=== PATIENT | female | born 1950 | race Caucasian/White ===

== ENCOUNTER 2016-09-20 11:17 | Observation (INO) ==
--- NOTE | 2016-09-20 11:28 | Emergency Department Note ---
Disposition Clinical Impression: Chest pain, Abnormal EKG, Obesity, Hypertensive urgency, Headache, History of hypertension Disposition: Admitted As Inpatient Referrals: NO,PCP [Non-Partnered Physician] - Forms: ED Satisfaction Letter General Adult HPI - General Chief complaint: ED Chest Pain Stated complaint: CP/High BP Time Seen by Provider: 09/20/16 11:28 Source: patient Limitations: no limitations - History of Present Illness HPI Narrative: 56-year-old female reports to the emergency department complaining of chest pain which feels dull and pressure-like in the lower sternal area. There is no radiating pain. The patient reports she had bilateral knee replacements remotely. She has been very active and describes increasing dyspnea on exertion. There is no history of yeyo abdominal pain no vomiting. She reports chronic diarrhea status post cholecystectomy. There is no history of fever or trauma or rash or cough. No leg swelling or pain or coughing up blood. She also describes a significantly elevated blood pressure. She did she had a significant headache yesterday. There is no history of head trauma neck stiffness fever or rash. No convulsions or confusion. No trouble walking talking hearing seeing or speaking. The patient has no personal history of CAD DVT PE or cancer. 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 She has no personal history of aneurysm. There is been no confusion or convulsion. No numbness or weakness in the arms or legs. He is currently not anticoagulated. She takes aspirin intermittently. Patient reports he takes a diuretic for hypertension. She has no personal history of diabetes mellitus. She is a nonsmoker. Pain Scale: 2 - Related Data Home Medications Medication Instructions Recorded Confirmed Aleve 09/20/16 Aspirin 09/20/16 Maxide. 09/20/16 Sertraline 09/20/16 Allergies Allergy/AdvReac Type Severity Reaction Status Date / Time codeine Allergy Rash Verified 09/20/16 11:27 acetaminophen [From Percocet] AdvReac Vomiting Verified 09/20/16 11:27 Oxycodone [From Percocet] AdvReac Vomiting Verified 09/20/16 11:27 All systems ED: reviewed and negative except as stated. Past Medical History - Past Medical History Medical history: Reports: hypertension, other Surgical history: Reports: non-contributory Psychiatric history: Reports: no psych history - Social History Smoking Status: Never smoker Smokeless Tobacco Status: No Alcohol use: Reports: none Drug use: Reports: none Physical Exam - General Limitations: no limitations General appearance: alert, in no apparent distress - Head Head exam: atraumatic, normocephalic, normal inspection - Eye Eye exam: Present: normal appearance, PERRL, EOMI. Absent: scleral icterus, conjunctival injection, miosis, mydriasis - ENT ENT exam: normal exam, normal oropharynx, mucous membranes moist, TM's normal bilaterally, normal external ear exam - Neck Neck exam: Present: normal inspection, full ROM, trachea midline. Absent: tenderness - Chest Chest inspection: Present: symmetric chest wall rise. Absent: tenderness - Respiratory Respiratory exam: Present: normal lung sounds bilaterally. Absent: respiratory distress, wheezes, stridor, accessory muscle use, prolonged expiratory phase - Cardiovascular Cardiovascular exam: Present: regular rate, normal rhythm, normal heart sounds - Abdominal Exam Abdominal exam: Present: soft, Non-Tender, normal bowel sounds. Absent: tenderness, distention, guarding, rebound, rigidity - Extremities Exam Extremities exam: Present: normal inspection, full ROM, normal capillary refill. Absent: tenderness, pedal edema, joint swelling, calf tenderness - Expanded Lower Extremity Exam Lower leg exam: Absent: Homans' sign Neurovascular/Tendon exam: Present: normal capillary refill. Absent: motor deficit, sensory deficit, tendon deficit, extremity cold to touch, pallor - Back Exam Back exam: Present: normal inspection, full ROM. Absent: tenderness, CVA tenderness (R), CVA tenderness (L), vertebral tenderness - Neurological Exam Neurological exam: Present: alert, oriented X3, CN II-XII intact. Absent: motor sensory deficit, reflexes normal - Psychiatric Psychiatric exam: Present: normal affect, normal mood - Skin Skin exam: Present: warm, dry, intact, normal color. Absent: rash, cyanosis, diaphoresis, erythema, pallor, mottled Course Vital Signs Temperature 97.8 F 09/20/16 11:21 Pulse Rate 63 09/20/16 11:21 Respiratory Rate 16 09/20/16 11:21 Blood Pressure 198/107 09/20/16 11:21 O2 Sat by Pulse Oximetry 98 09/20/16 11:21 Temperature 97.8 F 09/20/16 11:21 Pulse Rate 55 09/20/16 14:06 Respiratory Rate 16 09/20/16 14:06 Blood Pressure 153/87 09/20/16 14:06 O2 Sat by Pulse Oximetry 97 09/20/16 14:06 Oxygen Delivery Oxygen Delivery Room Air Medical Decision Making - MDM Narrative Medical decision making narrative: The patient is experiencing chest pain and dyspnea on exertion. She is over 50 , has a history of hypertension appears to have uncontrolled hypertension, her EKG is significantly abnormal with T-wave inversions across the precordium are new compared to previous EKG. She has not had any recent stress test or heart catheterization. Based on her risk for ACS including age, hypertension, obesity , and notably abnormal EKG with symptomatic dyspnea on exertion and chest pain I thought it would be appropriate to admit the patient in the hospital. She essentially has a hypertensive urgency as well. She declined pain medication the ED initially. Nitroglycerin was given. She was monitored in the ER. CTA of the chest reveals acute disease. CT head negative. Aspirin was ordered. The patient's currently stable. I reviewed the case with her and her . 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 I reviewed the case with the hospitalist on-call who is accepted the patient to their care. - Lab Data Lab results reviewed: Yes I reviewed the patient's lab results. Result diagrams: 09/20/16 11:40 09/20/16 11:40 Lab Results 09/20/16 09/20/16 09/20/16 Range/Units 11:40 11:40 11:40 WBC (4.3-11.1) K/mcL RBC (3.82-4.97) M/mcL Hgb (11.5-15.4) g/dL Hct (35.3-44.9) % MCV (83.0-100.0) fL MCH (28.0-33.3) pg MCHC (31.6-35.5) g/dL RDW (11.5-14.5) % Plt Count (140-400) K/mcL MPV (9.4-12.4) fL Immature Gran % (0-4) % Seg Neutrophils % % Lymphocytes % % Monocytes % % Eosinophils % % Basophils % % Neutrophils # (1.6-8.9) K/mcL Lymphocytes # (0.6-4.6) K/mcL Monocytes # (0.0-1.3) K/mcL Eosinophils # (0.0-0.6) K/mcL Basophils # (0.0-0.2) K/mcL PT 10.6 (9.4-12.1) Seconds INR 1.0 APTT 31.5 (26.0-36.0) Seconds Sodium 141 (136-145) mEq/L Potassium 4.2 (3.5-4.5) mEq/L Chloride 105 (98-109) mEq/L Carbon Dioxide 27 (19-29) mEq/L BUN 15 (7-20) mg/dL Creatinine 0.84 (0.57-1.11) mg/dL Est GFR ( Amer) > 60 (> 60) Est GFR (Non-Af Amer) > 60 (> 60) BUN/Creatinine Ratio 18 (6-26) Glucose 106 H (70-99) mg/dL Calculated Osmolality 293 (280-300) Lactic Acid (0.5-2.2) mmol/L Calcium 9.7 (8.6-10.8) mg/dL Total Bilirubin 0.3 (0.2-1.2) mg/dL Direct Bilirubin 0.2 (0.0-0.5) mg/dL Indirect Bilirubin 0.1 (0.0-1.2) mg/dL AST 21 (5-34) Units/L ALT 20 (0-55) Units/L Alkaline Phosphatase 169 H (38-126) Units/L Troponin I (0-0.03) ng/mL C-Reactive Protein 5 H (Less than 5) mg/L Serum Total Protein 7.4 (6.0-8.3) g/dL Albumin 3.8 (3.5-5.0) g/dL Globulin 3.6 H (2.4-3.5) g/dL Albumin/Globulin Ratio 1.1 (1.1-2.2) Lipase 54 (8-78) Units/L 09/20/16 09/20/16 09/20/16 Range/Units 11:40 11:40 11:40 WBC 4.9 (4.3-11.1) K/mcL RBC 4.97 (3.82-4.97) M/mcL Hgb 12.7 (11.5-15.4) g/dL Hct 40.2 (35.3-44.9) % MCV 80.9 L (83.0-100.0) fL MCH 25.6 L (28.0-33.3) pg MCHC 31.6 (31.6-35.5) g/dL RDW 14.2 (11.5-14.5) % Plt Count 228 (140-400) K/mcL MPV 10.8 (9.4-12.4) fL Immature Gran % 0.2 (0-4) % Seg Neutrophils % 62.8 % Lymphocytes % 27.1 % Monocytes % 7.1 % Eosinophils % 2.2 % Basophils % 0.6 % Neutrophils # 3.1 (1.6-8.9) K/mcL Lymphocytes # 1.3 (0.6-4.6) K/mcL Monocytes # 0.4 (0.0-1.3) K/mcL Eosinophils # 0.1 (0.0-0.6) K/mcL Basophils # 0.0 (0.0-0.2) K/mcL PT (9.4-12.1) Seconds INR APTT (26.0-36.0) Seconds Sodium (136-145) mEq/L Potassium (3.5-4.5) mEq/L Chloride (98-109) mEq/L Carbon Dioxide (19-29) mEq/L BUN (7-20) mg/dL Creatinine (0.57-1.11) mg/dL Est GFR ( Amer) (> 60) Est GFR (Non-Af Amer) (> 60) BUN/Creatinine Ratio (6-26) Glucose (70-99) mg/dL Calculated Osmolality (280-300) Lactic Acid 1.0 (0.5-2.2) mmol/L Calcium (8.6-10.8) mg/dL Total Bilirubin (0.2-1.2) mg/dL Direct Bilirubin (0.0-0.5) mg/dL Indirect Bilirubin (0.0-1.2) mg/dL AST (5-34) Units/L ALT (0-55) Units/L Alkaline Phosphatase (38-126) Units/L Troponin I 0.01 (0-0.03) ng/mL C-Reactive Protein (Less than 5) mg/L Serum Total Protein (6.0-8.3) g/dL Albumin (3.5-5.0) g/dL Globulin (2.4-3.5) g/dL Albumin/Globulin Ratio (1.1-2.2) Lipase (8-78) Units/L - Radiology Data Radiology results reviewed: Yes I reviewed the patient's radiology results.
[2016-09-20] MEDS ORDERED: Nitroglycerin 1 INCH/GM PACKET TP ONE (11:38)
[2016-09-20] MEDS ORDERED: Ondansetron 4 MG/2 ML VIAL IVP ONE (11:41)
[2016-09-20] MEDS ORDERED: *HR* Morphine 2 MG/ML SYRINGE IVP ONE (11:41)
[2016-09-20 11:53] LABS: Basophils % 0.6 %; Eosinophils # 0.1 K/mcL (0.0-0.6); Eosinophils % 2.2 %; Hematocrit 40.2 % (35.3-44.9); Hemoglobin 12.7 g/dL (11.5-15.4); Immature Granulocytes % 0.2 % (0-4); Lymphocytes # 1.3 K/mcL (0.6-4.6); Lymphocytes % 27.1 %; Mean Corpuscular HGB Conc 31.6 g/dL (31.6-35.5); Mean Corpuscular Hemoglobin 25.6 pg (28.0-33.3); Mean Corpuscular Volume 80.9 fL (83.0-100.0); Mean Platelet Volume 10.8 fL (9.4-12.4); Monocytes # 0.4 K/mcL (0.0-1.3); Monocytes % 7.1 %; Neutrophils # 3.1 K/mcL (1.6-8.9); Platelet Count 228 K/mcL (140-400); Red Blood Count 4.97 M/mcL (3.82-4.97); Red Cell Distribution Width 14.2 % (11.5-14.5); Segmented Neutrophils % 62.8 %
[2016-09-20 11:59] LABS: Prothrombin Time 10.6 Seconds (9.4-12.1)
[2016-09-20 12:01] LABS: Activated Partial Thrombo Time 31.5 Seconds (26.0-36.0)
[2016-09-20 12:09] LABS: Alanine Aminotransferase 20 Units/L (0-55); Albumin 3.8 g/dL (3.5-5.0); Albumin/Globulin Ratio 1.1 (1.1-2.2); Alkaline Phosphatase 169 Units/L (38-126); Aspartate Amino Transferase 21 Units/L (5-34); BUN/Creatinine Ratio 18 (6-26); Bilirubin,Direct 0.2 mg/dL (0.0-0.5); Bilirubin,Indirect 0.1 mg/dL (0.0-1.2); Bilirubin,Total 0.3 mg/dL (0.2-1.2); Blood Urea Nitrogen 15 mg/dL (7-20); Calcium 9.7 mg/dL (8.6-10.8); Carbon Dioxide 27 mEq/L (19-29); Chloride 105 mEq/L (98-109); Globulin 3.6 g/dL (2.4-3.5); Glucose 106 mg/dL (70-99); Lipase 54 Units/L (8-78); Osmolality,Calculated 293 (280-300); Potassium 4.2 mEq/L (3.5-4.5); Sodium 141 mEq/L (136-145); Total Protein 7.4 g/dL (6.0-8.3); eGFR For African Americans > 60 (> 60); eGFR For Non-African Americans > 60 (> 60)
[2016-09-20] MEDS ORDERED: Aspirin 325 MG TABLET PO ONE (14:25)
[2016-09-20] MEDS ORDERED: Ondansetron ODT 4 MG TAB.RAPDIS SL PRN (15:07)
[2016-09-20] MEDS ORDERED: Naloxone 0.4 MG/ML INJ IVP PRN (15:07)
[2016-09-20] MEDS ORDERED: Acetaminophen 325 MG TABLET PO PRN (15:07)
[2016-09-20] MEDS ORDERED: Loratadine 10 MG TABLET PO PRN (16:45)
--- NOTE | 2016-09-20 16:53 | Internal Med History&Physical ---
<Juanito Mcginnis - Last Filed: 09/20/16 20:09> Date of Encounter: 09/20/16 Internal Medicine - H&P: HPI History of present illness: Ms. Workman is a 66 year old female Internal Medicine - H&P: Meds Aspirin Enteric Coated [Aspirin EC] 81 mg PO DAILY 09/20/16 [History] Cyanocobalamin (Vitamin B-12) [Vitamin B12] 2,500 mcg PO 3XW 09/20/16 [History] Esomeprazole Magnesium [Nexium] 40 mg PO DAILY PRN 09/20/16 [History] Loratadine [Claritin] 10 mg PO DAILY PRN 09/20/16 [History] Naproxen Sodium [Aleve] 220 mg PO Q12H PRN 09/20/16 [History] Sertraline [Zoloft] 50 mg PO DAILY 09/20/16 [History] Triamterene/HCTZ 37.5/25mg [Dyazide] 1 each PO DAILY 09/20/16 [History] Allergies codeine Allergy (Verified 09/20/16 11:27) Rash acetaminophen [From Percocet] Adverse Reaction (Verified 09/20/16 11:27) Vomiting Oxycodone [From Percocet] Adverse Reaction (Verified 09/20/16 11:27) Vomiting All Systems PM: A 10-system review of systems was performed and is negative for pertinent findings except as documented above in the HPI. - Constitutional Vitals: Temp Pulse Resp BP Pulse Ox 97.4 F L 59 17 167/92 99 09/20/16 15:57 09/20/16 15:57 09/20/16 15:57 09/20/16 15:57 09/20/16 16:33 Internal Med - H&P Results - Labs CBC & Chem 7: 09/20/16 11:40 09/20/16 11:40 Labs: Cardiac Enzymes 09/20/16 Range/Units 18:22 Troponin I 0.00 (0-0.03) ng/mL - Attending Attestation I examined this patient and my medical decision-making was reviewed with the Advanced Practice Nurse. I agree with the documented findings, disposition and treatment plan as described except to the extent set forth below. Patient currently is chest pain-free. She reports that she has had a stress test 10 years ago which showed some mild abnormality. After that she had a cardiac catheterization which showed no significant plaque. On exam she is in no acute distress. Heart exam reveals S1 and S2 regular. No murmurs. Lungs are clear. Plan: We will monitor on telemetry. Trend troponin. We will obtain a stress test in the morning and echocardiogram. <Lola Perla - Last Filed: 09/20/16 22:11> Date of Encounter: 09/20/16 Time of Encounter: 16:47 Assessment and Plan (1) Chest pain Current visit: Yes Status: Acute Patient reporting chest tightness, shortness of breath on exertion since yesterday. EKG showed t-wave inversions. troponin was negative at 0.01. Chest CT showed no PE or acute pulmonary abnormality. Patient with risk factors of hypertension, obesity, family history. continuous hall monitor serial troponins echocardiogram and stress test in the morning. Qualifiers: Chest pain type: precordial pain Qualified Code(s): R07.2 - Precordial pain (2) Hypertensive urgency Current visit: Yes Status: Acute Patient reports her blood pressure was running high at home all day yesterday. On presentation, blood pressure 198/107. Nitro paste given and blood pressure improved to 153/87. Continue home dose of triamterene/HCTZ. Hydralazine PRN for SBP > 160 or DBP > 100. (3) Borderline diabetes Current visit: Yes Status: Acute Patient reports "borderline" diabetes, not on any medication. Will check fasting glucose and Hgb A1c with morning labs. (4) Headache Current visit: Yes Status: Acute Patient reported headache yesterday, likely secondary to uncontrolled hypertension. CT of head negative for acute abnormality. Patient reporting headache is relieved on my assessment. Tylenol PRN. Qualifiers: Headache type: tension-type Headache chronicity pattern: acute headache Intractability: not intractable Qualified Code(s): G44.209 - Tension-type headache, unspecified, not intractable (5) DVT prophylaxis Current visit: Yes Status: Acute anti-embolic stockings Lovenox 40mg SQ daily Internal Medicine - H&P: HPI Chief complaint: chest pain, Admitted From: Emergency Dept Plans for Post Hospital Care: Home History of present illness: Ms. Workman is a 66 year old female with hypertension, GERD, borderline diabetes, who presented to the emergency department today with complaints of shortness of breath and chest tightness. Patient reports that yesterday she did not feel well that she noticed chest tightness, shortness of breath on exertion, headache and nausea, as well as burping. She monitored her blood pressure all day and it seemed to be running high. When she woke up today she had the symptoms again and blood pressure was again high and her face felt funny. She was given nitroglycerin and morphine and symptoms improved. Blood pressure on presentation was 198/107, she was given Nitropaste and blood pressure improved to 153/87. Patient denies any lightheadedness, palpitations, coughing, vomiting , abdominal pain, fever, chills. Evaluation in the emergency department included a troponin which was negative at 0.01. EKG did show some T-wave inversions that is changed from prior EKG. Chest CT showed no PE, in no acute pulmonary abnormality. Head CT showed no acute intracranial abnormality. On exam, patient alert and oriented, in no acute distress, heart had regular rate and rhythm, lungs are clear bilaterally to auscultation. Past Med Surg Social Fam HX - Past Medical History Medical history: GERD, hypertension, other Psychiatric history: depression - Past Surgical History Surgical History: cholecystectomy, hysterectomy, knee replacement - Social History Smoking Status: Never smoker Smokeless Tobacco Status: No Alcohol use: occasionally Drug use: none - Family History Mother Living Status: Hx Family Cardiac Disorders: Yes Hx Family Endocrine Disorder: Yes (Diabetes) Hx Family Neurologic Disorders: Yes (stroke at 52) Father Living Status: Age at : 83 Hx Family Cardiac Disorders: Yes Hx Family Respiratory Disorders: Yes (COPD) All Systems PM: A 10-system review of systems was performed and is negative for pertinent findings except as documented above in the HPI. - Constitutional Constitutional: malaise, no chills, no fever(s), no night sweats - EENT Eyes: no change in vision, no discharge, no pain, no photophobia Ears: no ear discharge, no ear pain, no tinnitus Nose, mouth and throat: no dysphagia, no nasal discharge, no neck pain, no sore throat - Cardiovascular Cardiovascular ROS IM: chest pain, dyspnea on exertion, no diaphoresis, no dyspnea, no lightheadedness, no palpitations, no syncope - Respiratory Respiratory: dyspnea on exertion, no cough, no dyspnea, no wheezing, no excessive phlegm production - Gastrointestinal Gastrointestinal: nausea, no abdominal pain, no diarrhea, no hematemesis, no hematochezia, no melena, no vomiting - Genitourinary Genitourinary: no change in urinary stream, no dysuria, no flank pain, no hematuria - Musculoskeletal Musculoskeletal ROS IM: no numbness, no tingling - Integumentary Integumentary IM: no rash, no unusual bruising - Neurological Neurological ROS: headache(s), no confusion, no convulsions, no focal weakness, no numbness, no tingling, no tremor(s) - Hematologic/Lymphatic Hematologic/Lymphatic: no easy bruising - Constitutional Vitals: Temp Pulse Resp BP Pulse Ox 97.4 F L 59 17 167/92 99 09/20/16 15:57 09/20/16 15:57 09/20/16 15:57 09/20/16 15:57 09/20/16 15:57 General appearance: Present: A&O X 3, pleasant, no acute distress, obese - Head Head exam: Present: atraumatic, normocephalic - Eye Eye exam: Present: PERRL, conjuntiva pink, sclera anicteric Pupils: Present: PERRL - Neck Neck exam general surgery: Present: supple, trachea midline. Absent: lymphadenopathy - Respiratory Respiratory exam: Present: CTAB. Absent: accessory muscle use, rales, rhonchi, wheezes - Cardiovascular Cardiovascular exam: Present: RRR, +S1, +S2. Absent: diastolic murmur, gallop, rubs, systolic murmur - GI/Abdominal GI/Abdominal exam: Present: normal bowel sounds, soft, no peritoneal signs. Absent: distended, tenderness - Extremities Exam Extremities exam: Present: warm, radial pulses palpable and symetrical. Absent : calf tenderness, cyanotic, pedal edema - Neurological Exam Neurological exam: Present: CN II-XII intact, oriented X3, no focal deficits. Absent: facial droop, speech deficit - Skin Skin exam: Present: dry, intact Internal Med - H&P Results - Labs CBC & Chem 7: 09/20/16 11:40 09/20/16 11:40 Labs: All Lab Results (24 Hours) 06/13/17 06/13/17 06/13/17 Range/Units 11:40 11:40 11:40 WBC (4.3-11.1) K/mcL RBC (3.82-4.97) M/mcL Hgb (11.5-15.4) g/dL Hct (35.3-44.9) % MCV (83.0-100.0) fL MCH (28.0-33.3) pg MCHC (31.6-35.5) g/dL RDW (11.5-14.5) % Plt Count (140-400) K/mcL MPV (9.4-12.4) fL Immature Gran % (0-4) % Seg Neutrophils % % Lymphocytes % % Monocytes % % Eosinophils % % Basophils % % Neutrophils # (1.6-8.9) K/mcL Lymphocytes # (0.6-4.6) K/mcL Monocytes # (0.0-1.3) K/mcL Eosinophils # (0.0-0.6) K/mcL Basophils # (0.0-0.2) K/mcL PT 10.6 (9.4-12.1) Seconds INR 1.0 APTT 31.5 (26.0-36.0) Seconds Sodium 141 (136-145) mEq/L Potassium 4.2 (3.5-4.5) mEq/L Chloride 105 (98-109) mEq/L Carbon Dioxide 27 (19-29) mEq/L BUN 15 (7-20) mg/dL Creatinine 0.84 (0.57-1.11) mg/dL Est GFR ( Amer) > 60 (> 60) Est GFR (Non-Af Amer) > 60 (> 60) BUN/Creatinine Ratio 18 (6-26) Glucose 106 H (70-99) mg/dL Calculated Osmolality 293 (280-300) Lactic Acid (0.5-2.2) mmol/L Calcium 9.7 (8.6-10.8) mg/dL Total Bilirubin 0.3 (0.2-1.2) mg/dL Direct Bilirubin 0.2 (0.0-0.5) mg/dL Indirect Bilirubin 0.1 (0.0-1.2) mg/dL AST 21 (5-34) Units/L ALT 20 (0-55) Units/L Alkaline Phosphatase 169 H (38-126) Units/L Troponin I (0-0.03) ng/mL C-Reactive Protein 5 H (Less than 5) mg/L Serum Total Protein 7.4 (6.0-8.3) g/dL Albumin 3.8 (3.5-5.0) g/dL Globulin 3.6 H (2.4-3.5) g/dL Albumin/Globulin Ratio 1.1 (1.1-2.2) Lipase 54 (8-78) Units/L 09/20/16 09/20/16 09/20/16 Range/Units 11:40 11:40 11:40 WBC 4.9 (4.3-11.1) K/mcL RBC 4.97 (3.82-4.97) M/mcL Hgb 12.7 (11.5-15.4) g/dL Hct 40.2 (35.3-44.9) % MCV 80.9 L (83.0-100.0) fL MCH 25.6 L (28.0-33.3) pg MCHC 31.6 (31.6-35.5) g/dL RDW 14.2 (11.5-14.5) % Plt Count 228 (140-400) K/mcL MPV 10.8 (9.4-12.4) fL Immature Gran % 0.2 (0-4) % Seg Neutrophils % 62.8 % Lymphocytes % 27.1 % Monocytes % 7.1 % Eosinophils % 2.2 % Basophils % 0.6 % Neutrophils # 3.1 (1.6-8.9) K/mcL Lymphocytes # 1.3 (0.6-4.6) K/mcL Monocytes # 0.4 (0.0-1.3) K/mcL Eosinophils # 0.1 (0.0-0.6) K/mcL Basophils # 0.0 (0.0-0.2) K/mcL PT (9.4-12.1) Seconds INR APTT (26.0-36.0) Seconds Sodium (136-145) mEq/L Potassium (3.5-4.5) mEq/L Chloride (98-109) mEq/L Carbon Dioxide (19-29) mEq/L BUN (7-20) mg/dL Creatinine (0.57-1.11) mg/dL Est GFR ( Amer) (> 60) Est GFR (Non-Af Amer) (> 60) BUN/Creatinine Ratio (6-26) Glucose (70-99) mg/dL Calculated Osmolality (280-300) Lactic Acid 1.0 (0.5-2.2) mmol/L Calcium (8.6-10.8) mg/dL Total Bilirubin (0.2-1.2) mg/dL Direct Bilirubin (0.0-0.5) mg/dL Indirect Bilirubin (0.0-1.2) mg/dL AST (5-34) Units/L ALT (0-55) Units/L Alkaline Phosphatase (38-126) Units/L Troponin I 0.01 (0-0.03) ng/mL C-Reactive Protein (Less than 5) mg/L Serum Total Protein (6.0-8.3) g/dL Albumin (3.5-5.0) g/dL Globulin (2.4-3.5) g/dL Albumin/Globulin Ratio (1.1-2.2) Lipase (8-78) Units/L - Diagnostic Studies CT scan - chest Additional comments: Chest CTA 09/20/16 11:30 IMPRESSION: No evidence of pulmonary embolism or acute pulmonary abnormality. D/ / Jesus Moya MD / Jesus oMya MD Interpreting Provider: Jesus Moya MD CT scan - head Additional comments: Head CT 09/20/16 11:38 IMPRESSION: No acute intracranial abnormality. D/ / Chalino Henry MD / Chalino Henry MD Interpreting Provider: Chalino Henry MD
--- NOTE | 2016-09-20 20:01 | Electrocardiograph Report ---
[facility] Test Date: 2016-09-20 Pat Name: Diamond Workman Department: [id number] Room: 3B45 Gender: F [employer] Inspector: CARMITA : 1950 Requested By: jS Ricketts Order Number: [id number] Reading MD: Guilherme Caicedo DO Measurements Intervals [place] Rate: 60 P: 31 MA: 148 QRS: -4 QRSD: 87 T: 1 QT: 409 QTc: 409 Interpretive Statements SINUS RHYTHM ST DEVIATION AND MODERATE T-WAVE ABNORMALITY, CONSIDER ANTEROLATERAL ISCHEMIA INTERPRETATION BASED ON A DEFAULT AGE OF 40 YEARS Electronically Signed On 09-20-2016 20:00:24 EDT by Guilherme Caicedo DO
[2016-09-21 01:08] LABS: Basophils % 0.5 %; Eosinophils # 0.1 K/mcL (0.0-0.6); Eosinophils % 2.1 %; Hematocrit 36.8 % (35.3-44.9); Immature Granulocytes % 0.2 % (0-4); Lymphocytes # 1.8 K/mcL (0.6-4.6); Lymphocytes % 30.2 %; Mean Corpuscular HGB Conc 32.6 g/dL (31.6-35.5); Mean Corpuscular Hemoglobin 25.9 pg (28.0-33.3); Mean Corpuscular Volume 79.3 fL (83.0-100.0); Mean Platelet Volume 10.5 fL (9.4-12.4); Monocytes # 0.5 K/mcL (0.0-1.3); Monocytes % 8.4 %; Neutrophils # 3.6 K/mcL (1.6-8.9); Platelet Count 217 K/mcL (140-400); Red Blood Count 4.64 M/mcL (3.82-4.97); Red Cell Distribution Width 14.2 % (11.5-14.5); Segmented Neutrophils % 58.6 %
[2016-09-21 01:26] LABS: BUN/Creatinine Ratio 17 (6-26); Blood Urea Nitrogen 14 mg/dL (7-20); Calcium 9.3 mg/dL (8.6-10.8); Carbon Dioxide 28 mEq/L (19-29); Chloride 104 mEq/L (98-109); Chol/HDL Ratio 4.2 (0-4.9); Cholesterol 164 mg/dL (< 200); Glucose 101 mg/dL (70-99); HDL Cholesterol 39 mg/dL (40-59); LDL Cholesterol,Calculated 98 mg/dL (0-99); Osmolality,Calculated 291 (280-300); Potassium 3.7 mEq/L (3.5-4.5); Sodium 140 mEq/L (136-145); Triglycerides 134 mg/dL (< 150); eGFR For African Americans > 60 (> 60); eGFR For Non-African Americans > 60 (> 60)
[2016-09-21 01:28] LABS: Hemoglobin A1C 5.9 %
[2016-09-21] MEDS ORDERED: Regadenoson 0.4 MG/5 ML SYRINGE IVP ONE (06:27)
[2016-09-21] MEDS ORDERED: *HR* Enoxaparin 40 MG/0.4 ML SYRINGE SQ SCH (07:00)
[2016-09-21] MEDS ORDERED: Aspirin Enteric Coated 81 MG Tablet PO SCH (09:00)
[2016-09-21 11:16] VITALS: BP 117/72
--- NOTE | 2016-09-21 11:54 | Nuclear Medicine Stress Report ---
Regadenoson Nuclear Stress Name: Diamond Workman Date of Study: 09/21/2016 Date: 1950 Ht: 67.0 in Medical Record#: [id number] Age: 66 Wt: 233.0 lb Gender: Female Order #: [id number] Location: [facility] Room: [facility] Supervising Provider: Huy Tapia CNP Reading Physician: Edith Tracy DO Ordering Physician: Radha Yan CNP Primary Care Physician: Drake Hauser DO Stress Technologist: Grisel Toussaint, [place] Investment Fund Manager: Scott Diamond Indications: Chest Pain Impression: Perfusion imaging was negative for ischemia or infarct. Pharmacologic ECG was non diagnostic for ischemia. Gated EF = >70%. Patient complained of 2/10 chest pain during the procedure. Recommend clinical correlation. History: Hypertension Stress Test Summary: Stress Test Type: Pharmacologic Regadenoson 0.4mg/5ml given IV Baseline Information: Initial Heart Rate: 61 Blood Pressure: 148/90 Stress Information: Test Terminated Due to (primary): As per protocol Maximum Blood Pressure: 126/80 Maximum Heart Rate: 93 Percent Maximum Heart Rate Achieved: 60 Double Product: [id number] METS Reached: 1 Symptoms: Chest pain Nuclear Summary: SPECT myocardial perfusion imaging using Tc99m Sestamibi given intravenously was performed at rest and following cardiac stress testing. The resting images were obtained following initial dose of 11.5 mCi. Following stress an additional dose of 35.7 mCi was given at peak exercise or 30 seconds post regadenoson infusion. Medication Given: Time Medication Dose Units Route Findings: Stress Note * Resting ECG demonstrated normal sinus rhythm with nonspecific ST abnormalities. * Pharmacologic stress ECG is non diagnostic for ischemia due to baseline non-specific ST and T changes. * No arrhythmias were noted during stress. * Patient had 2/10 chest pain during the procedure. Hemodynamic responses * Normal hemodynamic responses to pharmacologic stress. Study Quality * Study quality was fair. Gated EF > 70% * Gated EF > 70%. Left Ventricle * The left ventricle is not dilated. NORMALS * Normal wall motion. TID * No evidence of transient ischemic dilatation. Lung Uptake * There is no evidence of increase lung uptake. PERFUSION * There is a small sized, mild intensity fixed perfusion defect involving the apical lateral wall. Wall motion is normal. Findings represent artifact. * Other segments demonstrate normal rest and stress perfusion. Updated by Edith Tracy on 09/21/2016 11:49:04 AM electronically signed on 09/21/2016 11:50:41 AM with status of Final
--- NOTE | 2016-09-21 14:03 | Discharge Summary ---
Date of Encounter: 09/21/16 Time of Encounter: 13:00 - Discharge Diagnosis (1) Chest pain Priority: Primary Status: Resolved Comments: Patient denied chest pain or shortness of breath throughout this admission. Stress test negative. Echocardiogram unremarkable. Follow-up outpatient. Qualifiers: Chest pain type: precordial pain Qualified Code(s): R07.2 - Precordial pain (2) Abnormal EKG Priority: Primary Status: Ruled-out (3) Hypertensive urgency Priority: Primary Status: Resolved (4) Headache Priority: Primary Status: Resolved Qualifiers: Headache type: tension-type Headache chronicity pattern: acute headache Intractability: not intractable Qualified Code(s): G44.209 - Tension-type headache, unspecified, not intractable (5) History of hypertension Priority: Secondary Status: Chronic Comments: Markedly hypertensive upon arrival however normotensive with the resumption of her regular home medications. Unclear causation. Patient denies diet changes, medication changes, or increased stress. Normotensive throughout admission, recommend daily blood pressure checks at home, keeping a log, and following up with her primary care provider. (6) DVT prophylaxis Priority: Primary Status: Acute Comments: Subcutaneous Lovenox while admitted (7) Borderline diabetes Priority: Secondary Status: Chronic Comments: A1c 5.9%, follow-up outpatient. No formal diagnosis of diabetes. (8) Obesity Priority: Secondary Status: Chronic Qualifiers: Obesity type: due to excess calories Obesity severity: non-morbid Qualified Code(s): E66.09 - Other obesity due to excess calories - Discharge Medications Home Medications: Aspirin Enteric Coated [Aspirin EC] 81 mg PO DAILY 09/20/16 [History] Cyanocobalamin (Vitamin B-12) [Vitamin B12] 2,500 mcg PO 3XW 09/20/16 [History] Esomeprazole Magnesium [Nexium] 40 mg PO DAILY PRN 09/20/16 [History] Loratadine [Claritin] 10 mg PO DAILY PRN 09/20/16 [History] Naproxen Sodium [Aleve] 220 mg PO Q12H PRN 09/20/16 [History] Sertraline [Zoloft] 50 mg PO DAILY 09/20/16 [History] Triamterene/HCTZ 37.5/25mg [Dyazide] 1 each PO DAILY 09/20/16 [History] Allergies/Adverse Reactions: Allergies codeine Allergy (Verified 09/20/16 11:27) Rash acetaminophen [From Percocet] Adverse Reaction (Verified 09/20/16 11:27) Vomiting Oxycodone [From Percocet] Adverse Reaction (Verified 09/20/16 11:27) Vomiting Date of admission: 09/20/16 15:16 Primary care physician: Drake Hauser DO Discharging clinician: Radha Yan Anticipated date of discharge: 09/21/16 - Patient Status Disposition: Home, Self-Care Condition: Good Functional capacity at discharge: independent ambulation Overall status at discharge: patient is back to baseline - Discharge Instructions Follow Up With: Miryam Multani NURSE ADMINISTRATOR [Advanced Practice Nurse] - 09/27/16 11:00 am Additional Instructions: Follow-up with primary care provider as scheduled. Check blood pressure daily and keep a log - Diet and Activity Activity: increase activity as tolerated Diet: diabetic diet, low salt diet Hospital course: Ms. Workman is a 66 year old female with past medical history of hypertension, GERD, borderline diabetes. Patient presented to the emergency department chief complaint shortness of breath and chest tightness. Patient reports on the day prior to presentation that she did not feel well and noticed chest tightness, shortness of breath with exertion, headache, nausea, and burping. Patient checked her blood pressure throughout the day and it was running high. She woke up on the morning of presentation and again the symptoms persisted and her blood pressure was again high and she stated that her "face felt funny." In the emergency department, patient was given nitroglycerin and morphine and her symptoms improved. Initial blood pressure on presentation 198/107. She was given Nitropaste and her blood pressure improved to 150s over 80s. Patient denied lightheadedness, palpitations, coughing, abdominal pain, fever or chills. Initial EKG did reveal some T-wave inversions that was new for this patient. Chest CTA negative for acute processes. Head CT negative. Patient was admitted to the hospitalist service for further evaluation and management. Troponin negative 3. Echocardiogram revealing ejection fraction of 60%, mild diastolic dysfunction and mild TR. Patient was euvolemic on examination throughout this admission and denied shortness of breath. She also denied chest pain throughout this admission. She had a nuclear stress test that was negative and revealed an ejection fraction greater than 70%. Acute coronary syndrome ruled out. Patient was able to tolerate a regular diet while admitted. Unclear causation of her hypertension. Patient denied recent dietary changes, stress, or medication changes. She was normotensive while admitted with the resumption of her regular home antihypertensive medications so no changes were indicated to her medications. She was instructed to check her blood pressure daily and keep a log for her primary care provider. She was discharged home in stable condition with close outpatient follow-up recommended. ITS Impressions Chest CTA 09/20/16 11:30 IMPRESSION: No evidence of pulmonary embolism or acute pulmonary abnormality. D/ / Jesus Moya MD / Jesus Moya MD Interpreting Provider: Jesus Moya MD Head CT 09/20/16 11:38 IMPRESSION: No acute intracranial abnormality. D/ / Chalino Henry MD / Chalino Henry MD Interpreting Provider: Chalino Henry MD Echocardiogram Impressions: LVEF 60%. Normal left ventricular size and systolic function. There is evidence of mild diastolic dysfunction of the left ventricle. Normal right ventricular size and function. Mild tricuspid regurgitation. Probably borderline presence of pulmonary hypertension. TR gradient 33 mmHg. IVC is not well visualized. Regadenosen nuclear stress test impression: Perfusion imaging was negative for ischemia or infarct. Pharmacologic ECG was nondiagnostic for ischemia. Gated EF is greater than 70%. Patient complained of 2/10 chest pain during the procedure. Recommend clinical correlation. - Time Spent with Patient Total time spent providing and/or coordinating discharge services: - Constitutional Vitals: Temp Pulse Resp BP Pulse Ox 97.7 F 67 16 117/72 97 09/21/16 11:16 09/21/16 11:16 09/21/16 11:16 09/21/16 11:16 09/21/16 11:16 General appearance: Present: A&O X 3, pleasant, no acute distress, obese, answers questions appropriately - Head Head exam: Present: atraumatic, normocephalic - Eye Eye exam: Present: PERRL, conjuntiva pink, sclera anicteric Pupils: Present: PERRL - Neck Neck exam general surgery: Present: supple, trachea midline. Absent: lymphadenopathy - Respiratory Respiratory exam: Present: CTAB. Absent: accessory muscle use, rales, respiratory distress, rhonchi, wheezes - Cardiovascular Cardiovascular exam: Present: RRR, +S1, +S2. Absent: diastolic murmur, gallop, rubs, systolic murmur - GI/Abdominal GI/Abdominal exam: Present: normal bowel sounds, soft, no peritoneal signs. Absent: distended, tenderness - Extremities Exam Extremities exam: Present: warm, radial pulses palpable and symetrical. Absent : calf tenderness, cyanotic, pedal edema - Neurological Exam Neurological exam: Present: alert, CN II-XII intact, normal gait, oriented X3, no focal deficits, strengths equal and symetr throughout. Absent: pronater drift, facial droop, speech deficit - Skin Skin exam: Present: dry, intact, normal color, warm
== END 2016-09-21 14:40 | disposition home or self-care (01) ==
LOC: EMEROO 11:17 → 3BNU 11:17
PROVIDERS: ADMIT Internal Medicine; ATTEND Nurse Practitioner Family